=== PATIENT | female | born 1975 | race Two or more races ===

== ENCOUNTER 2020-08-18 04:23 | Day surgery (SDC) | payer OTHER ==
[2020-08-16 16:55] VITALS: BMI 24.2
[2020-08-18] MEDS ORDERED: MIDAZOLAM HCL 2 MG/2 ML SINGLE DOSE VIAL ONE (10:27)
[2020-08-18] MEDS ORDERED: PROPOFOL 20 ML ONE ×2 (10:27→11:09)
[2020-08-18] MEDS ORDERED: ONDANSETRON 4 MG/2 ML VIAL IVPUSH PRN (10:36)
[2020-08-18] MEDS ORDERED: PROMETHAZINE HCL 25 MG/1 ML VIAL IVPUSH PRN (10:36)
[2020-08-18] MEDS ORDERED: oxyCODONE HCL 5 MG TABLET PO PRN (10:36)
[2020-08-18] MEDS ORDERED: LACTATED RINGERS SOLUTION 1,000 ML IV SCH (10:45)
[2020-08-18] MEDS ORDERED: ceFAZolin 2 GRAM PREMIX BAG IVPB ONE (11:10)
[2020-08-18] MEDS ORDERED: BUPIVACAINE 0.25% /EPI 1:200,000 10 ML VIAL ONE (11:15)
[2020-08-18] MEDS ORDERED: BUPIVACAINE 0.25% /EPI 1:200,000 10 ML VIAL PNB ONE (11:23)
[2020-08-18] MEDS ORDERED: BACITRACIN 15 GM TUBE TOPICAL OINTMENT ONE (11:55)
[2020-08-18] MEDS ORDERED: ONDANSETRON 4 MG/2 ML VIAL ONE (12:03)
[2020-08-18] MEDS ORDERED: DEXAMETHASONE SOD PHOSPHATE 4 MG/1 ML VIAL ONE (12:03)
[2020-08-18] MEDS ORDERED: ACETAMINOPHEN 1000 MG/100 ML VIAL (NON FORMULARY) IVPB PRN (12:30)
[2020-08-18] MEDS ORDERED: ACETAMINOPHEN 325 MG TABLET (FP) PO PRN (12:43)
[2020-08-18] MEDS ORDERED: IBUPROFEN 400 MG TABLET (FP) PO PRN (12:43)
[2020-08-18 14:46] VITALS: BP 101/66; PULSE 82; TEMP 97.8
== END 2020-08-18 14:46 | disposition home or self-care (01) ==
LOC: JASU-SURG 04:23
PROVIDERS: ATTEND Specialist
PROC: 0UBMXZZ Excision of Vulva, External Approach (ICD-10-PCS; principal; 2020-08-18 10:30)
DX: N90.60 Unspecified hypertrophy of vulva (principal)
CPT/HCPCS: 81025; 88304-TC; 94760